=== PATIENT | female | born 1955 | race Caucasian/White ===

== ENCOUNTER 2016-12-31 06:31 | Inpatient (IN) ==
--- NOTE | 2016-12-31 06:49 | Urology History & Physical ---
Date of Encounter: 12/31/16 Time of Encounter: 06:47 Assessment and Plan (1) Uterine prolapse Current Visit: Yes Status: Acute proceed with ASCP and hysterectomy. all questions answered. History of Present Illness Chief complaint: prolapse HPI: Ms. 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 no changes in condition. Past Med Surg Social Fam HX - Past Medical History Medical history: other - Past Surgical History Surgical History: other - Social History Smoking Status: Unknown if ever smoked Medications and Allergies Allergies albuterol Adverse Reaction (Verified 12/27/16 10:10) Anxiety ciprofloxacin [From Cipro] Adverse Reaction (Verified 12/27/16 10:10) Anxiety nitrofurantoin Adverse Reaction (Verified 12/27/16 10:10) Anxiety Sulfa (Sulfonamide Antibiotics) Adverse Reaction (Verified 12/27/16 10:10) See Comments jitteeriness sulfamethoxazole [From Bactrim] Adverse Reaction (Verified 12/27/16 10:08) See Comments jitteeriness trimethoprim [From Bactrim] Adverse Reaction (Verified 12/27/16 10:08) See Comments jitteeriness laundry detergent Allergy (Uncoded 12/27/16 10:10) Hives Review of Systems - Constitutional no fever(s) - Cardiovascular no chest pain Exam - General physical appearance Present: well developed, no distress Urology Results - Labs All other labs normal.
[2016-12-31] MEDS ORDERED: *HR* Midazolam HCl 2 MG/2 ML VIAL ONE (06:56)
[2016-12-31] MEDS ORDERED: *HR* FentaNYL (PF) 100 MCG/2 ML VIAL ONE (06:56)
[2016-12-31] MEDS ORDERED: Dexamethasone 4 MG/ML VIAL ONE (06:57)
[2016-12-31] MEDS ORDERED: Lidocaine -MPF 2% 2 ML VIAL ONE (06:57)
[2016-12-31] MEDS ORDERED: *HR* Propofol 200 MG/20 ML VIAL IVP ONE (06:57)
[2016-12-31] MEDS ORDERED: Ondansetron 4 MG/2 ML VIAL ONE (06:57)
[2016-12-31] MEDS ORDERED: *HR* Rocuronium Bromide 50 MG/5 ML VIAL ONE ×2 (06:57→08:57)
[2016-12-31] MEDS ORDERED: Lidocaine -MPF 4% 5 ML AMPUL ONE (06:59)
[2016-12-31] MEDS ORDERED: CeFAZolin Pre 2,000 MG/100 ML 2,000 MG/100 ML BAG IVPB ONE (07:00)
[2016-12-31] MEDS ORDERED: Lidocaine -MPF 1% 2 ML VIAL ID ONE (07:00)
--- NOTE | 2016-12-31 07:12 | History & Physical Report ---
Date of Encounter: 12/31/16 Time of Encounter: 07:11 24 Hour HP Update - Instructions Instructions: If the History and Physical is less than 30 days old and was completed prior to A.M. admission and or procedure and has NOT been updated on calendar day of procedure please complete this update prior to performing procedure. - Update Patient reports changes in Medical Condition: No Changes in examination, assessment, or condition: No Changes in Medication: No Preop tests/diagnostics Reviewed: Yes Surgery Remains Indicated: Yes Consent for Planned Operative Procedure(s) Verified: Yes - Pre-Operative Checklist Preoperative Checklist Indicated: Yes Prophylactic Antibiotic Ordered: Yes Home Medications Include Beta Сергей: No Beta Сергей Taken Today (Day of Surgery): No Beta Сергей Taken Yesterday (Day Prior to Surgery): No Is VTE Prophylaxis Indicated?: Yes
--- NOTE | 2016-12-31 07:29 | Anesthesia Evaluation PreOp ---
Date of Encounter: 12/31/16 Time of Encounter: 07:29 - Past History Planned Operation: sacrocopopexy, hysterectomy Cardiac History: Arrhythmia (A fib) Pulmonary History: Denies Any Significant HX HEEL PACKER History: Denies Any Significant HX Other Medical History: Thyroid (hyperthyroidism - taking methimazole ( normalized thyroid levels and is currently being weaned off)) Anesthesia History: No Prior Anesthetic Complications (never underwent general anesthesia previously; wisdom teeth surgery and colonoscopy; no family hx of problems with anesthesia) Alcohol Use: none Drug use: none Medications and Allergies Allergies albuterol Adverse Reaction (Verified 12/27/16 10:10) Anxiety ciprofloxacin [From Cipro] Adverse Reaction (Verified 12/27/16 10:10) Anxiety nitrofurantoin Adverse Reaction (Verified 12/27/16 10:10) Anxiety Sulfa (Sulfonamide Antibiotics) Adverse Reaction (Verified 12/27/16 10:10) See Comments jitteeriness sulfamethoxazole [From Bactrim] Adverse Reaction (Verified 12/27/16 10:08) See Comments jitteeriness trimethoprim [From Bactrim] Adverse Reaction (Verified 12/27/16 10:08) See Comments jitteeriness laundry detergent Allergy (Uncoded 12/27/16 10:10) Hives - Meds/Allergy Pre-op Review Medications Reviewed: Yes Allergies Reviewed: Yes Beta Blockers on Current Med List: Yes If Beta Blockers taken, Date/Time (Last Dose taken): 12-31-16 metoprolol am Anesthesia Results - Labs Laboratory Tests 12/27/16 12/27/16 12/30/16 10:25 10:25 12:22 WBC 4.6 Hgb 14.0 Hct 40.8 Plt Count 171 Sodium 139 Potassium 4.1 Chloride 105 Carbon Dioxide 27 BUN 20 Creatinine 0.83 Est GFR ( Amer) > 60 Est GFR (Non-Af Amer) > 60 BUN/Creatinine Ratio 24 - Imaging EKG: report reviewed, image reviewed (SR; short MS) Anesthesia Exam Last Vital Signs Temp 98.0 F 12/31/16 07:09 Pulse 64 12/31/16 07:09 Resp 18 12/31/16 07:09 BP 142/78 12/31/16 07:09 Pulse Ox 99 12/31/16 07:09 Weight: 80 kg NPO (# of Hours): >> 8 hrs - HEENT Pupil (Motor): Pupils equal, EOMI Mallampati: I Teeth: Normal Oral Opening: Greater than 3 - HEEL PACKER LOC: Oriented HEEL PACKER Motor: Normal RUE, Normal LUE, Normal RLE, Normal LLE, Normal Face - Cardiac Rhythm: Regular Murmur: None - Pulmonary Breath Sounds: bilateral Clear Respiratory Effort: Symmetrical Anesthesia Assess/Plan ASA Score: 2 Modified [place] Scale for Level of Consciousness: Cooperative, oriented, and tranquil Anesthetic Plan: General Monitoring Plan: Standard Monitors Recovery Plan: PACU
[2016-12-31] MEDS: Ringers Solution, Lactated 1,000 ML IVC SCH ×2 (07:35→08:51)
[2016-12-31] MEDS ORDERED: EPHEDrine 50 MG/ML VIAL ONE (08:15)
[2016-12-31] MEDS ORDERED: *HR* Promethazine 25 MG/ML VIAL IVP PRN (08:46)
[2016-12-31] MEDS ORDERED: *HR* Labetalol 20 MG/4 ML SYRINGE IVP PRN (08:46)
[2016-12-31] MEDS ORDERED: *HR* HYDROmorphone (PF) 1 MG/ML SYRINGE IVP PRN ×2 (08:46→13:04)
[2016-12-31] MEDS ORDERED: *HR* HYDROmorphone 2 MG/ML SYRINGE ONE (09:00)
[2016-12-31] MEDS ORDERED: Ketorolac 30 MG/ML VIAL ONE (09:38)
--- NOTE | 2016-12-31 10:15 | OB/GYN Procedure Note ---
OB-MOLDER: Procedure - Diagnosis Date of procedure: 12/31/16 Pre-op diagnosis: pelvic organ prolapse Post-op diagnosis: same - Procedure Procedure: KATY, cysto Surgeon: Clementine Magana Roguer: Sarai Swan Anesthesia Type: General Estimated blood loss (cc): 400 Fluids: crystalloid Procedure Complications: none Specimens collected: uterus, fallopian tubes Disposition: floor Findings: normal looking uterus, ovaries and tubes Narrative: The patient was placed in the dorsal supine position after an adequate level of general anesthesia was obtained and after appropriate informed consent had been obtained. The barker was draining clear urine from the bladder. After the patient was prepped and draped in the usual sterile manner, a Pfannenstiel incision was made. Subcutaneous tissue was incised until the level of the rectus fascia was reached. A billy was made in the fascia. This was extended the length of the incision using Wang scissors. The recti muscles were and the peritoneum was dissected bluntly to gain adequate access into the abdomen. We explored the abdomen. The bowels grossly appeared normal. The uterus looked normal. The ovaries and tubes were examined and found to be normal. The Bookwalter retractor was set up before the hysterectomy was started. The right round ligament was clamped with the Ligasure device, coagulated and cut. The anterior leaf of the broad ligament was cut using Metzenbaum scissors. The bladder was gently dissected using sharp and blunt dissection and it was gently pushed down with the sponge on a stick. The Ligasure was used to free the ovaries as well as amputate the tubes. The right uterine artery was then skeletonized, clamped at the level of the cervical os using the Ligasure device and cut. Similar procedure was done on the opposite side. We encountered multiple bleeding point which we suture ligated. 2 Sonia clamps were placed at the level of the internal os, where they were clamped before the uterus was amputated. The cervix was suture ligated with 0 vicryl suture until it was noted to be hemostatic. I did a cystoscopy at the end to be sure there was no stitch through the bladder. After confirming this and returning to the abdomen after changing gloves, we confirmed that there was adequate hemostasis. Dr Ramirez then came in to continue with the sacrocolpopexy part.
[2016-12-31] MEDS ORDERED: Neostigmine Methylsulfate 3 MG/3 ML SYRINGE ONE (10:44)
[2016-12-31] MEDS ORDERED: *HR* Phenylephrine 10 MG/ML VIAL ONE (11:46)
--- NOTE | 2016-12-31 12:41 | Operative Note ---
Date of procedure: 12/31/16 Pre-op diagnosis: Uterine prolapse Post-op diagnosis: same Procedure: Abdominal sacral colpopexy Cystoscopy Anesthesia: ALEKSANDAR Surgeon: Enrique Ramirez Estimated blood loss (cc): 100 Specimen: none Condition: stable (None) Disposition: PACU Procedure in Detail: Patient preoperatively was determined to have significant grade 3 uterine prolapse. No incontinence was visualized with reduction of the prolapse. She failed conservative measures including pessary. She was set up today for a supracervical hysterectomy and abdominal sacral colpopexy. performed the supracervical hysterectomy first. When I entered the room the patient was already in dorsal lithotomy position with a Pfannenstiel incision. Bookwalter retractor was in place with bowel packed superiorly and the cervix with [address]. There was no active bleeding. I repositioned the superior retractor to better expose the sacral promontory. Metzenbaum scissors were used to incise the posterior peritoneum overlying the sacral promontory. I continued the incision of the peritoneum down and around to the cervix. I used the DeBakey to pick up worker on the edges of the peritoneum and a Kitner to help dissect the tissue planes. I was able to identify the internal iliac artery and ureter. They were uninjured during the procedure. I was able to raise sufficient peritoneal flaps all the way up to the cervix. Anterior to the cervix identified the bladder and was able to palpate the Cortez balloon. The patient had a nice plane between the bladder and the vagina and was able to easily dissect along the anterior vaginal wall and reflect the bladder superiorly. There is no evidence of bladder injury during this step. At that point I obtained the [employer] Y mesh and began to soak this in normal saline. I preplaced four 2-0 Prolene sutures through the anterior vaginal wall and cervix. The Cortez catheter was removed and I performed a cystoscopy with a 70 lens. I confirm that there was no evidence of suture injury to the bladder mucosa. I then threaded the Prolene suture through the anterior portion of the Y mesh and sutured in place. There was a small amount of excess mesh that was excised. 4 additional Prolene sutures were placed on the posterior aspect of the vagina and cervix. These were eventually threaded through the posterior portion of the Y mesh to secure the mesh in place. The excess mesh was excised and removed from the surgical field. 2 additional 2-0 Prolene sutures were placed at the sacral promontory. Pierced the ligament and periosteum and were securely anchored. There was no bleeding from any of the venous sinuses at this location. Using an EEA I was able to manipulate the apex of the vagina superiorly identified the proper location for the tail of the Y mesh and threaded the Prolene sutures to tie down the mesh. The vagina was adequately suspended using this technique. The peritoneum was then closed over top of the mesh using a 2-0 running suture during no mesh was exposed after closure of the peritoneum. The cul-de-sac was closed with 3 pursestring 2-0 Vicryl sutures to close the potential space for a recurrent enterocele. I repeated a cystoscopy at this time and performed bilateral ureteral catheterization. There was no resistance and no evidence of ureteral injury. The Bookwalter retractor was then removed along with all laps. All counts were correct at this time. Abdominal closure was started. Multiple 2-0 Vicryl sutures were placed to reapproximate the rectus muscle. The fascia was closed with a running looped #1 PDS. Sánchez's tissue closed with a 2-0 Vicryl and the skin with 4-0 Monocryl. Dermabond and island dressing was placed along with an abdominal binder. All counts were correct on the procedure. Vaginal packing was also placed and the catheter was left in place after the last cystoscopy. Estimated blood loss was a 500 mL.
--- NOTE | 2016-12-31 12:56 | Anesthesia Evaluation Post Op ---
Date of Encounter: 12/31/16 Time of Encounter: 12:55 - Vital Signs Vital Signs: Vital Signs/O2 Sat/Glucose, Most Current Temp Pulse Resp BP Pulse Ox 12/31/16 12:49 97.8 F 61 12 92/54 94 12/31/16 12:39 59 12 97/57 96 12/31/16 12:29 59 12 89/57 93 12/31/16 12:19 97.3 F L 67 12 90/46 99 - Lungs Lungs: Clear Ascult./Percussion - Airway Airway: Non-obstructed - Cardiovascular Regular Rate - Mental Status Mental Status: Asleep with brisk response to light stimulation - Pain Pain Scale: 0 - Nausea Vomiting Nausea Vomiting: Not Present - Hydration Hydration: NPO - Discharge PostOp Status: Transfer Patient to floor
[2016-12-31] MEDS ORDERED: Ketorolac 15 MG/ML VIAL IVP PRN (13:04)
[2016-12-31] MEDS ORDERED: Ondansetron 4 MG/2 ML VIAL IVP PRN (13:04)
[2016-12-31] MEDS ORDERED: Naloxone 0.4 MG/ML INJ IVP PRN (13:04)
[2016-12-31] MEDS: ceFAZolin 2,000 MG in D5% in Water 100 ML IVPB SCH (16:19)
[2016-12-31] MEDS: 0.9 % Sodium Chloride 1,000 ML IVC SCH (17:45)
[2016-12-31] MEDS: *HR* Morphine 2 MG/ML SYRINGE IVP PRN (17:50)
[2016-12-31] MEDS: methIMAzole 5 MG TABLET PO SCH (19:57)
[2017-01-01] MEDS: ceFAZolin 2,000 MG in D5% in Water 100 ML IVPB SCH (00:59)
[2017-01-01] MEDS: *HR* Morphine 2 MG/ML SYRINGE IVP PRN (02:34)
[2017-01-01] MEDS: 0.9 % Sodium Chloride 1,000 ML IVC SCH (02:35)
[2017-01-01] MEDS ORDERED: *HR* OxyCODONE/APAP 5/325 TABLET PO PRN (07:15)
[2017-01-01] MEDS ORDERED: Ibuprofen 600 MG TABLET PO PRN (07:16)
[2017-01-01 07:17] LABS: Hematocrit 31.7 % (35.3-44.9); Hemoglobin 10.6 g/dL (11.5-15.4); Mean Corpuscular HGB Conc 33.4 g/dL (31.6-35.5); Mean Corpuscular Hemoglobin 30.7 pg (28.0-33.3); Mean Corpuscular Volume 91.9 fL (83.0-100.0); Platelet Count 158 K/mcL (140-400); Red Blood Count 3.45 M/mcL (3.82-4.97); Red Cell Distribution Width 13.1 % (11.5-14.5)
[2017-01-01] MEDS ORDERED: *HR* Morphine 2 MG/ML SYRINGE IVP PRN (07:26)
--- NOTE | 2017-01-01 07:29 | Urology Progress Note ---
Date of Encounter: 01/01/17 Time of Encounter: 07:27 - Assessment and Plan (1) Uterine prolapse Current Visit: Yes Status: Resolved Assessment and plan: no post operative complications. plan for today - remove barker and vaginal packing. saline lock. stop Ancef. ambulate TID. hold advancing diet for now. Progress Note Subjective: tolerating liquids well, no flatus Narrative: doing ok. pain tolerable and controlled Objective Initial Vital Signs Temp Pulse Resp BP Pulse Ox 98.0 F 64 18 142/78 99 12/31/16 07:09 12/31/16 07:09 12/31/16 07:09 12/31/16 07:09 12/31/16 07:09 - General physical appearance Present: well developed, no distress - Additional Exam dressings removed. minimal bruising. no drainage - Labs 01/01/17 07:05 - VTE Documentation of Mechanical Device: Intermittent pneumatic compression device Consult Discharge Plan - Plan Referrals: Breana Newton CORPORATE SERVICES MANAGER [Primary Care Provider] -
[2017-01-01 07:54] LABS: BUN/Creatinine Ratio 18 (6-26); Blood Urea Nitrogen 13 mg/dL (7-20); Calcium 8.2 mg/dL (8.6-10.8); Carbon Dioxide 23 mEq/L (19-29); Chloride 109 mEq/L (98-109); Glucose 109 mg/dL (70-99); Osmolality,Calculated 285 (280-300); Potassium 4.1 mEq/L (3.5-4.5); Sodium 137 mEq/L (136-145); eGFR For African Americans > 60 (> 60); eGFR For Non-African Americans > 60 (> 60)
[2017-01-01] MEDS ORDERED: Bisacodyl 10 MG RECTAL SUPPOSITORY RC PRN (12:21)
--- NOTE | 2017-01-01 12:24 | Discharge Summary ---
Date of Encounter: 01/01/17 Time of Encounter: 12:21 - Discharge Diagnosis (1) Uterine prolapse Priority: Primary Status: Resolved - Discharge Medications Prescriptions: Bisacodyl [Dulcolax] 10 mg PO DAILY PRN #10 tablet PRN Reason: Constipation HYDROcodone/Acet 5/325 mg [[place] 5-325 mg] 1 tab PO Q4H PRN #20 tab PRN Reason: Pain Home Medications: Ascorbate Calcium [Vitamin C] 500 mg PO DAILY 12/31/16 [History] Aspirin [Lo-Dose Aspirin EC] 81 mg PO DAILY 12/31/16 [History] Biotin 5 mg PO DAILY 12/31/16 [History] Cholecalciferol (D-3) [Vitamin D] 1,000 unit PO DAILY 12/31/16 [History] Methimazole [Tapazole] 10 mg PO HS 12/31/16 [History] Metoprolol [Lopressor] 25 mg PO BID 12/31/16 [History] Multivitamin [One Daily Essential] 1 each PO DAILY 12/31/16 [History] [place]-3/Dha/Epa/Fish Oil [Fish Oil 1,000 mg Softgel] 1 each PO DAILY 12/31/16 [ History] Sertraline [Zoloft] 25 mg PO HS 12/31/16 [History] Bisacodyl [Dulcolax] 10 mg PO DAILY PRN #10 tablet 01/01/17 [Rx] HYDROcodone/Acet 5/325 mg [[place] 5-325 mg] 1 tab PO Q4H PRN #20 tab 01/01/17 [Rx ] Allergies/Adverse Reactions: Allergies albuterol Adverse Reaction (Verified 12/31/16 08:03) Anxiety ciprofloxacin [From Cipro] Adverse Reaction (Verified 12/31/16 08:03) Anxiety nitrofurantoin Adverse Reaction (Verified 12/31/16 08:03) Anxiety Sulfa (Sulfonamide Antibiotics) Adverse Reaction (Verified 12/31/16 08:03) See Comments JITTERY sulfamethoxazole [From Bactrim] Adverse Reaction (Verified 12/31/16 08:03) See Comments JITTERY trimethoprim [From Bactrim] Adverse Reaction (Verified 12/31/16 08:03) See Comments JITTERY laundry detergent Allergy (Uncoded 12/27/16 10:10) Hives Labs on day of discharge: Labs from last 24 hours 01/01/17 01/01/17 07:05 07:05 WBC 7.2 D RBC 3.45 L Hgb 10.6 L D Hct 31.7 L MCV 91.9 MCH 30.7 MCHC 33.4 RDW 13.1 Plt Count 158 MPV 10.0 Sodium 137 Potassium 4.1 Chloride 109 Carbon Dioxide 23 BUN 13 Creatinine 0.72 Est GFR ( Amer) > 60 Est GFR (Non-Af Amer) > 60 BUN/Creatinine Ratio 18 Glucose 109 H Calculated Osmolality 285 Calcium 8.2 L Date of admission: 12/31/16 13:03 Primary care physician: Breana Newton Discharging clinician: Enrique Ramirez Anticipated date of discharge: 01/01/17 - Patient Status Disposition: Home, Self-Care Condition: Good Functional capacity at discharge: independent ambulation Overall status at discharge: patient is progressing back to baseline - Discharge Instructions Follow Up With: Breana Newton CNP [Primary Care Provider] - Enrique Ramirez MD [Partnered Physician] - (2-4 weeks) Clementine Magana MD [Partnered Physician] - (4 weeks. ) Additional Instructions: Okay to shower No baths or swimming Strictly avoid heavy lifting, heavy activity, straining for at least 4 weeks Use stool softeners if developing constipation. Okay to use ibuprofen for discomfort. Small amount of incontinence at the beginning is normal It may take a number of weeks to regain appetite. Stay hydrated as much as possible. No driving for at least 2 weeks Call if excessive abdominal pain, intractable nausea vomiting, fever over 101, difficulty urinating, severe incontinence. - Diet and Activity Activity: other Diet: advance to your usual diet - Hospital Course Hospital course: Ms. Guerrero is a 61 year old female postoperative day #1 hysterectomy and abdominal sacral colpopexy. Doing well. Ambulating. awaiting urination. Vital stable and pain is controlled. Possible discharge tonight if she urinates and feels comfortable - Time Spent with Patient Total time spent providing and/or coordinating discharge services: Exam Initial Vital Signs Temp Pulse Resp BP Pulse Ox 98.0 F 64 18 142/78 99 12/31/16 07:09 12/31/16 07:09 12/31/16 07:09 12/31/16 07:09 12/31/16 07:09 - General physical appearance Present: well developed, no distress - Additional Findings incision closed dry - VTE Documentation of Mechanical Device: Intermittent pneumatic compression device
[2017-01-01] MEDS: methIMAzole 5 MG TABLET PO SCH (21:45)
--- NOTE | 2017-01-02 07:03 | Urology Progress Note ---
Date of Encounter: 01/02/17 Time of Encounter: 07:02 - Assessment and Plan (1) Uterine prolapse Current Visit: Yes Status: Resolved Assessment and plan: activate discharge. pt doing great Progress Note Subjective: feels better Narrative: passing flatus. minimal pain. ambulating. Objective Initial Vital Signs Temp Pulse Resp BP Pulse Ox 98.0 F 64 18 142/78 99 12/31/16 07:09 12/31/16 07:09 12/31/16 07:09 12/31/16 07:09 12/31/16 07:09 - General physical appearance Present: well developed, no distress - Additional Exam abd - expected tender. not distended - Labs 01/01/17 07:05 01/01/17 07:05 Diabetes panel 01/01/17 Range/Units 07:05 Sodium 137 (136-145) mEq/L Potassium 4.1 (3.5-4.5) mEq/L Chloride 109 (98-109) mEq/L Carbon Dioxide 23 (19-29) mEq/L BUN 13 (7-20) mg/dL Creatinine 0.72 (0.57-1.11) mg/dL Glucose 109 H (70-99) mg/dL Calcium 8.2 L (8.6-10.8) mg/dL Calcium panel 01/01/17 Range/Units 07:05 Calcium 8.2 L (8.6-10.8) mg/dL Pituitary panel 01/01/17 Range/Units 07:05 Sodium 137 (136-145) mEq/L Potassium 4.1 (3.5-4.5) mEq/L Chloride 109 (98-109) mEq/L Carbon Dioxide 23 (19-29) mEq/L BUN 13 (7-20) mg/dL Creatinine 0.72 (0.57-1.11) mg/dL Glucose 109 H (70-99) mg/dL Calcium 8.2 L (8.6-10.8) mg/dL Adrenal panel 01/01/17 Range/Units 07:05 Sodium 137 (136-145) mEq/L Potassium 4.1 (3.5-4.5) mEq/L Chloride 109 (98-109) mEq/L Carbon Dioxide 23 (19-29) mEq/L BUN 13 (7-20) mg/dL Creatinine 0.72 (0.57-1.11) mg/dL Glucose 109 H (70-99) mg/dL Calcium 8.2 L (8.6-10.8) mg/dL - VTE Documentation of Mechanical Device: Intermittent pneumatic compression device Consult Discharge Plan - Plan Additional Instructions: Okay to shower No baths or swimming Strictly avoid heavy lifting, heavy activity, straining for at least 4 weeks Use stool softeners if developing constipation. Okay to use ibuprofen for discomfort. Small amount of incontinence at the beginning is normal It may take a number of weeks to regain appetite. Stay hydrated as much as possible. No driving for at least 2 weeks Call if excessive abdominal pain, intractable nausea vomiting, fever over 101, difficulty urinating, severe incontinence. Referrals: Breana Newton CNP [Primary Care Provider] - Clementine Magana MD [Partnered Physician] - (4 weeks. ) Enrique Ramirez MD [Partnered Physician] - (2-4 weeks) Prescriptions: Bisacodyl [Dulcolax] 10 mg PO DAILY PRN #10 tablet PRN Reason: Constipation HYDROcodone/Acet 5/325 mg [[place] 5-325 mg] 1 tab PO Q4H PRN #20 tab PRN Reason: Pain
[2017-01-02 08:39] VITALS: BP 137/74
== END 2017-01-02 08:59 | disposition home or self-care (01) | DRG 743 ==
LOC: SAMDAY 06:31 → EDUNIT# 07:45 → 1NENUOBS 13:03
PROVIDERS: ADMIT Student in an Organized Health Care Education/Training Program; ATTEND Student in an Organized Health Care Education/Training Program